=== PATIENT | female | born 1970 | race Caucasian/White ===

== ENCOUNTER 2023-01-08 09:25 | Outpatient (CLI) | payer OTHER, SELFPAY ==
--- NOTE | 2023-01-08 09:35 | MM_ITS ---
WS: [id number] Bilateral screening 3D tomosynthesis digital mammogram, 01/08/2023 Clinical Data: Z12.39 - Encounter for other screening for malignant neop... Comparison: 04/03/2014 Findings: The breast parenchymal pattern shows heterogeneous density. No spiculated masses or clustered calcifi cations are seen. There are no secondary signs of carcinoma. MM/[id number] Impression: 1. Negative bilateral mammogram unchanged. 2. Recommend annual screening mammograms. BIRADS: 1-Negative FOLLOW UP: 1 Year Follow-up The CAD bingo checker was used.
== END 2023-01-08 09:26 | disposition home or self-care (01) ==
LOC: RAD 09:28
PROVIDERS: Visit Provider Nurse Practitioner Women's Health
DX: Z12.31 Encounter for screening mammogram for malignant neoplasm of breast (principal); Z01.419 Encounter for gynecological examination (general) (routine) without abnormal findings
CPT/HCPCS: 77063; 77067; 87624